=== PATIENT | male | born 1935 | race Caucasian/White ===

== ENCOUNTER 2017-07-10 09:20 | Day surgery (SDC) | payer MEDICARE, OTHER ==
[~2017-07-10 09:20] MED LIST: Cefuroxime 10 MG/ML SYRINGE EYELF SCH; Lidocaine 1% PF 2 ML SDV INJECT SCH; Pilocarpine 4% Ophth Soln 15 ML Bot EYELF SCH
[2017-07-10] MEDS: Polymyxin B/Trimethoprim 10 ML Bottle EYELF SCH ×3 (10:29→12:15)
[2017-07-10] MEDS: Brimonidine 0.2% Ophth Soln 5 ML Bottle EYELF SCH ×3 (10:35→12:15)
[2017-07-10] MEDS: Phenylephrine 2.5% Ophth Soln 2 ML Bot EYELF SCH ×5 (10:40→11:54)
--- NOTE | 2017-07-10 10:56 | PCM.PREANE ---
Preanesthetic Assessment - Anesthesia/Transfusion/Family Hx Anesthesia History: Prior Anesthesia Without Reaction Family History of Anesthesia Reaction: No Transfusion History: No Prior Transfusion(s) Intubation History: Unknown - Review of Systems General: No Symptoms Pulmonary: No Symptoms (quit in 1975) Cardiovascular: No Symptoms (HTN, ) Gastrointestinal: Difficulty Swallowing Neurological: No Symptoms Other: Reports: None - Physical Assessment NPO Status Date: 07/09/17 NPO Status Time: 18:00 Pulse: 52 O2 Sat by Pulse Oximetry: 96 Respiratory Rate: 16 Blood Pressure: 129/61 Temperature: 36.4 C Vital Signs: Last Vital Signs Temp 36.4 C 07/10/17 10:22 Pulse 52 L 07/10/17 10:22 Resp 16 07/10/17 10:22 BP 129/61 07/10/17 10:22 Pulse Ox 96 07/10/17 10:22 Height: 1.7 m Weight: 100.698 kg ASA Class: 3 Mental Status: Alert & Oriented x3 Airway Class: Mallampati = 2 Dentition: Reports: Normal Dentition, Caries Thyro-Mental Finger Breadths: 3 Mouth Opening Finger Breadths: 3 ROM/Head Extension: Limited/Partial Lungs: Clear to Auscultation, Normal Respiratory Effort Cardiovascular: Regular Rate, Regular Rhythm, No Murmurs - Allergies Allergies/Adverse Reactions: Allergies Allergy/AdvReac Type Severity Reaction Status Date / Time No Known Allergies Allergy Verified 07/09/17 14:28 - Anesthesia Plan Pre-Op Medication Ordered: Beta [place] Beta [place]: Atenolol Med Last Dose Date: 07/10/17 Med Last Dose Time: 05:30 - Acknowledgements Anesthesia Type Planned: MAC Pt an Appropriate Candidate for the Planned Anesthesia: Yes Alternatives and Risks of Anesthesia Discussed w Pt/Guardian: Yes Pt/Guardian Understands and Agrees with Anesthesia Plan: Yes PreAnesthesia Questionnaire HEENT History: Reports: Hard of Hearing Other HEENT History: wears glasses, hearing aids Cardiovascular History: Reports: Heart Murmur, Hypertension, Other (See Below) Other Cardiovascular History: mitral valve insufficiency Respiratory History: Reports: Other (See Below) Other Respiratory History: history of pneumonia Gastrointestinal History: Reports: None - Past Surgical History GI Surgical History: Reports: Appendectomy, Colonoscopy, Hernia Repair/Other Musculoskeletal Surgical History: Reports: Hip Replacement - SUBSTANCE USE Smoking Status *Q: Former Smoker Tobacco Use Within Last Twelve Months: Cigarettes Second Hand Smoke Exposure: No Days Per Week of Alcohol Use: 7 Number of Drinks Per Day: 1 Total Drinks Per Week: 7 Recreational Drug Use History: No - HOME MEDS Home Medications: Home Meds Atenolol 25 mg PO DAILY 01/21/14 [History] Losartan [Cozaar] 25 mg PO DAILY 11/26/15 [History] - CURRENT (IN HOUSE) MEDS Current Meds: Current Medications Brimonidine Tartrate (Alphagan 0.2% Ophth Soln) 0 ml EYELF ASDIRECTED RANI Stop: 07/10/17 18:00 Last Admin: 07/10/17 10:35 Dose: 1 drop Cefuroxime Sodium (Zinacef) 0 mg EYELF ASDIRECTED RANI Stop: 07/10/17 18:00 Lidocaine HCl (Xylocaine-Mpf 1%) 10 ml INJECT ASDIRECTED RANI Stop: 07/10/17 18:00 Phenylephrine HCl (Luís-Synephrine 2.5% Ophth Soln) 0 ml EYELF ASDIRECTED RANI Stop: 07/10/17 18:00 Last Admin: 07/10/17 10:40 Dose: 1 drop Pilocarpine HCl (Pilocar 4% Ophth Soln) 0 ml EYELF ASDIRECTED RANI Stop: 07/10/17 18:00 Polymyxin/Trimethoprim Sulfate (Polytrim Ophth Soln) 0 ml EYELF ASDIRECTED RANI Stop: 07/10/17 18:00 Last Admin: 07/10/17 10:29 Dose: 1 drop Tetracaine HCl (Tetracaine 0.5% Steri-Unit Caril) 0 ml EYELF ASDIRECTED RANI Stop: 07/10/17 18:00 Tropicamide (Mydriacyl 1% Ophth Soln) 0 ml EYELF ASDIRECTED RANI Stop: 07/10/17 18:00 Last Admin: 07/10/17 10:45 Dose: 1 drop
[2017-07-10] MEDS: Tetracaine HCl/PF 0.5% 4 ML Bottle EYELF SCH ×2 (11:40→12:04)
--- NOTE | 2017-07-10 12:16 | PCM48HPAN ---
Post Anesthesia Note - EVALUATION WITHIN 48HRS OF ANESTHETIC Vital Signs in Normal Range: Yes Patient Participated in Evaluation: Yes Respiratory Function Stable: Yes Airway Patent: Yes Cardiovascular Function Stable: Yes Hydration Status Stable: Yes Pain Control Satisfactory: Yes Nausea and Vomiting Control Satisfactory: Yes Mental Status Recovered: Yes
[2017-07-10 12:37] VITALS: BP 149/81
== END 2017-07-10 12:31 | disposition home or self-care (01) ==
LOC: JD.SDS 09:20
PROVIDERS: ATTEND Ophthalmology
DX: H25.813 Combined forms of age-related cataract, bilateral (principal); H25.043 Posterior subcapsular polar age-related cataract, bilateral; H25.013 Cortical age-related cataract, bilateral; H40.003 Preglaucoma, unspecified, bilateral; H02.831 Dermatochalasis of right upper eyelid; H02.834 Dermatochalasis of left upper eyelid; I34.0 Nonrheumatic mitral (valve) insufficiency; R01.1 Cardiac murmur, unspecified; I10 Essential (primary) hypertension; Z87.891 Personal history of nicotine dependence; Z79.899 Other long term (current) drug therapy; Z96.653 Presence of artificial knee joint, bilateral; Z96.642 Presence of left artificial hip joint; Z98.890 Other specified postprocedural states
CPT/HCPCS: 66984; V2632; A9270-GY

== ENCOUNTER 2018-01-03 07:38 | Emergency (ER) | payer MEDICARE, OTHER ==
[2018-01-03 07:53] VITALS: BP 122/65
--- NOTE | 2018-01-03 07:57 | EDM.PDOC ---
ED HPI GENERAL MEDICAL PROBLEM - General Chief Complaint: Abdominal Pain Stated Complaint: LT SIDE ABD PAIN Time Seen by Provider: 01/03/18 07:50 Source of Information: Reports: Patient History Limitations: Reports: No Limitations - History of Present Illness INITIAL COMMENTS - FREE TEXT/NARRATIVE: 82-year-old male presents the ED with gradually worsening left lower quadrant abdominal pain over the last 3 days. He states he is pain-free if he doesn't move. It is worse with coughing walking or sitting. He can localize the pain very well to the distribution of his left lower quadrant over the sigmoid colon. He has no history of diverticulitis in the past. No recognized fever or chills. Appetite is been rather poor with only 1 meal taken in the last 2 days. States bowel function has been poor as well since she's not eating. No blood per rectum. He is passing flatus now but for. Of time he didn't seem to be able to pass flatus either and was concerned he may be developing another bowel obstruction. Patient's previous abdominal surgeries include an appendectomy cholecystectomy and an umbilical hernia raphe repair. He does not believe mesh grafting was used. Onset: Gradual Onset Date: 12/31/17 Duration: Day(s): (Gradually worsening left lower quadrant abdominal pain over the last 3 days.) Location: Reports: Abdomen (Left lower quadrant abdominal pain.) Quality: Reports: Ache Severity: Moderate Improves with: Reports: Rest Worsens with: Reports: Other (Coughing sneezing or laughing makes it worse.), Movement Context: Denies: Activity, Exercise, Lifting, Sick Contact, Trauma, Other Associated Symptoms: Reports: Loss of Appetite. 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: Other (see below) (None.) Left Lower Abdominal Pain Score (Numeric/FACES): 3 - Related Data Allergies Allergy/AdvReac Type Severity Reaction Status Date / Time No Known Allergies Allergy Verified 01/03/18 07:50 Home Meds: Home Meds Atenolol 25 mg PO DAILY 01/21/14 [History] Losartan [Cozaar] 25 mg PO DAILY 11/26/15 [History] Levofloxacin [Levaquin] 500 mg PO DAILY #9 tab 01/03/18 [Rx] metroNIDAZOLE [Flagyl] 500 mg PO Q8H #21 tab 01/03/18 [Rx] Past Medical History HEENT History: Reports: Hard of Hearing Other HEENT History: wears glasses, hearing aids Cardiovascular History: Reports: Heart Murmur, Hypertension, Other (See Below) Other Cardiovascular History: mitral valve insufficiency Respiratory History: Reports: Other (See Below) Other Respiratory History: history of pneumonia Gastrointestinal History: Reports: None - Past Surgical History GI Surgical History: Reports: Appendectomy, Colonoscopy, Hernia Repair/Other Musculoskeletal Surgical History: Reports: Hip Replacement Social & Family History - Family History HEENT: Reports: None Cardiac: Reports: None Respiratory: Reports: None GI: Reports: None : Reports: None Musculoskeletal: Reports: None Neurological: Reports: None Psychiatric: Reports: None Endocrine/Metabolic: Reports: None Hematologic: Reports: None Immunologic: Reports: None Oncologic: Reports: None - Living Situation & Occupation Living situation: Reports: Occupation: Retired ED ROS GENERAL - Review of Systems Review Of Systems: See Below Constitutional: Reports: Malaise, Weakness, Fatigue, Decreased Appetite, Weight Loss. Denies: Fever, Chills HEENT: Reports: Glasses Respiratory: Reports: Shortness of Breath. Denies: Wheezing, Pleuritic Chest Pain, Cough, Sputum, Hemoptysis Cardiovascular: Reports: Blood Pressure Problem (Controlled with medications), Dyspnea on Exertion. Denies: Claudication, Edema (Chronically), Lightheadedness , Orthopnea Endocrine: Reports: Fatigue GI/Abdominal: Reports: Abdominal Pain (See history of present illness), Decreased Appetite, Flatus (Is passing flatus last day or so. Does not feel bloated). Denies: Diarrhea, Nausea, Stool Incontinence, Vomiting : Reports: Frequency, Other (Nocturia 3.) Musculoskeletal: Reports: Back Pain, Joint Pain (Both knees have been replaced left hip is been replaced) Skin: Reports: No Symptoms Neurological: Reports: No Symptoms Psychiatric: Reports: No Symptoms Hematologic/Lymphatic: Reports: No Symptoms Immunologic: Reports: No Symptoms ED EXAM, GI/ABD - Physical Exam Exam: See Below Exam Limited By: No Limitations General Appearance: Alert, WD/WN, No Apparent Distress, Other Eyes: Bilateral: Normal Appearance (No jaundice.) Neck: Normal Inspection, Supple, Non-Tender. No: Lymphadenopathy (L), Lymphadenopathy (R) Respiratory/Chest: No Respiratory Distress, Lungs Clear, Normal Breath Sounds, No Accessory Muscle Use Cardiovascular: Normal Peripheral Pulses, Regular Rate, Rhythm, No Edema, No Murmur GI/Abdominal Exam: Guarding, Rebound (Patient is very tender to palpation left lower quadrant of the abdomen event like percussion. He is guarding with rebound tenderness left lower quadrant of the distribution of the sigmoid colon. ), Tender, Abnormal Bowel Sounds (Bowel sounds are mildly decreased compared to the norm.). No: Distended Back Exam: Normal Inspection, Full Range of Motion. No: CVA Tenderness (L), CVA Tenderness (R) Extremities: Normal Inspection, Normal Range of Motion, Non-Tender, No Pedal Edema Neurological: Alert, Oriented, CN II-XII Intact, Normal Cognition, Normal Gait Psychiatric: Normal Affect, Normal Mood Skin Exam: Warm, Dry, Intact, Normal Color, No Rash Course - Vital Signs Last Recorded V/S: Last Vital Signs Temp 36.0 C 01/03/18 07:50 Pulse 62 01/03/18 07:50 Resp 16 01/03/18 07:50 BP 122/65 01/03/18 07:50 Pulse Ox 95 01/03/18 07:50 - Orders/Labs/Meds Orders: Active Orders 24 hr Category Date Time Status EKG Documentation Completion [RC] STAT Care 01/03/18 07:58 Active CULTURE BLOOD [BC] Stat Lab 01/03/18 08:27 Received CULTURE BLOOD [BC] Stat Lab 01/03/18 08:36 Received Dextrose 5%-0.9% NaCl [Dextrose 5%-Normal Saline] 1,000 Med 01/03/18 08:00 Active ml IV ASDIRECTED Sodium Chloride 0.9% [Normal Saline] 1,000 ml Med 01/03/18 09:00 Active IV ASDIRECTED Sodium Chloride 0.9% [Normal Saline] 1,000 ml Med 01/03/18 10:00 Active IV ASDIRECTED Sodium Chloride 0.9% [Saline Flush] Med 01/03/18 09:30 Active 10 ml FLUSH ONETIME PRN Blood Culture x2 Reflex Set [OM.PC] Stat Oth 01/03/18 07:59 Ordered Medication Orders Dextrose/Sodium Chloride (Dextrose 5%-Normal Saline) 1,000 mls @ 500 mls/hr IV ASDIRECTED RANI Last Admin: 01/03/18 08:07 Dose: 500 mls/hr Sodium Chloride (Normal Saline) 1,000 mls @ 500 mls/hr IV ASDIRECTED RANI Last Admin: 01/03/18 09:08 Dose: 500 mls/hr Sodium Chloride (Normal Saline) 1,000 mls @ 150 mls/hr IV ASDIRECTED RANI Sodium Chloride (Saline Flush) 10 ml FLUSH ONETIME PRN PRN Reason: IV FLUSH Last Admin: 01/03/18 09:49 Dose: 10 ml Labs: Laboratory Tests 01/03/18 01/03/18 01/03/18 Range/Units 08:05 08:05 08:05 WBC 8.92 (4.23-9.07) K/mm3 RBC 4.87 (4.63-6.08) M/mm3 Hgb 15.9 (13.7-17.5) gm/L Hct 45.7 (40.1-51.0) % MCV 93.8 H (79.0-92.2) fl MCH 32.6 H (25.7-32.2) pg MCHC 34.8 (32.2-35.5) g/dl RDW Std Deviation 44.5 H (35.1-43.9) fL Plt Count 133 L (163-337) K/mm3 MPV 11.1 (9.4-12.3) fl Neutrophils % (Manual) 68 H (40-60) % Band Neutrophils % 0 (0-10) % Lymphocytes % (Manual) 29 (20-40) % Atypical Lymphs % 0 % Monocytes % (Manual) 2 (2-10) % Eosinophils % (Manual) 1 (0.8-7.0) % Basophils % (Manual) 0 L (0.2-1.2) Platelet Estimate Adequate RBC Morph Comment Normal ESR 13 (0-15) mm/hr PT (9.5-12.1) SECONDS INR APTT (24-31) SECONDS Sodium 136 (136-145) mEq/L Potassium 4.2 (3.5-5.1) mEq/L Chloride 101 (98-107) mEq/L Carbon Dioxide 26 (21-32) mEq/L Anion Gap 13.2 (5-15) BUN 19 H (7-18) mg/dL Creatinine 1.3 (0.7-1.3) mg/dL Est Cr Clr Drug Dosing 41.65 mL/min Estimated GFR (MDRD) 53 (>60) mL/min BUN/Creatinine Ratio 14.6 (14-18) Glucose 165 H (83-115) mg/dL Calcium 9.1 (8.5-10.1) mg/dL Magnesium 1.8 (1.8-2.4) mg/dl Total Bilirubin 1.7 H (0.2-1.0) mg/dL AST 16 (15-37) U/L ALT 35 (16-63) U/L Alkaline Phosphatase 58 (46-116) U/L C-Reactive Protein 13.9 H* (<1.0) mg/dL NT-Pro-B Natriuret Pep (0-450) pg/mL Total Protein 7.1 (6.4-8.2) g/dl Albumin 3.7 (3.4-5.0) g/dl Globulin 3.4 gm/dL Albumin/Globulin Ratio 1.1 (1-2) Lipase 85 (73-393) U/L Urine Color (Yellow) Urine Appearance (Clear) Urine pH (5.0-8.0) Ur Specific Shelly (1.005-1.030) Urine Protein (Negative) Urine Glucose (UA) (Negative) Urine Ketones (Negative) Urine Occult Blood (Negative) Urine Nitrite (Negative) Urine Bilirubin (Negative) Urine Urobilinogen (0.2-1.0) Ur Leukocyte Esterase (Negative) Urine RBC (0-5) /hpf Urine WBC (0-5) /hpf Ur Epithelial Cells (0-5) /hpf Urine Bacteria (FEW) /hpf Urine Mucus (FEW) /hpf 01/03/18 01/03/18 01/03/18 Range/Units 08:05 08:05 11:35 WBC (4.23-9.07) K/mm3 RBC (4.63-6.08) M/mm3 Hgb (13.7-17.5) gm/L Hct (40.1-51.0) % MCV (79.0-92.2) fl MCH (25.7-32.2) pg MCHC (32.2-35.5) g/dl RDW Std Deviation (35.1-43.9) fL Plt Count (163-337) K/mm3 MPV (9.4-12.3) fl Neutrophils % (Manual) (40-60) % Band Neutrophils % (0-10) % Lymphocytes % (Manual) (20-40) % Atypical Lymphs % % Monocytes % (Manual) (2-10) % Eosinophils % (Manual) (0.8-7.0) % Basophils % (Manual) (0.2-1.2) Platelet Estimate RBC Morph Comment ESR (0-15) mm/hr PT 11.2 (9.5-12.1) SECONDS INR 1.03 APTT 33 H (24-31) SECONDS Sodium (136-145) mEq/L Potassium (3.5-5.1) mEq/L Chloride (98-107) mEq/L Carbon Dioxide (21-32) mEq/L Anion Gap (5-15) BUN (7-18) mg/dL Creatinine (0.7-1.3) mg/dL Est Cr Clr Drug Dosing mL/min Estimated GFR (MDRD) (>60) mL/min BUN/Creatinine Ratio (14-18) Glucose (83-115) mg/dL Calcium (8.5-10.1) mg/dL Magnesium (1.8-2.4) mg/dl Total Bilirubin (0.2-1.0) mg/dL AST (15-37) U/L ALT (16-63) U/L Alkaline Phosphatase (46-116) U/L C-Reactive Protein (<1.0) mg/dL NT-Pro-B Natriuret Pep 362 (0-450) pg/mL Total Protein (6.4-8.2) g/dl Albumin (3.4-5.0) g/dl Globulin gm/dL Albumin/Globulin Ratio (1-2) Lipase (73-393) U/L Urine Color Yellow (Yellow) Urine Appearance Clear (Clear) Urine pH 6.0 (5.0-8.0) Ur Specific Shelly 1.015 (1.005-1.030) Urine Protein Negative (Negative) Urine Glucose (UA) Negative (Negative) Urine Ketones Negative (Negative) Urine Occult Blood Trace-intact H (Negative) Urine Nitrite Negative (Negative) Urine Bilirubin Negative (Negative) Urine Urobilinogen 0.2 (0.2-1.0) Ur Leukocyte Esterase Negative (Negative) Urine RBC Not seen (0-5) /hpf Urine WBC Not seen (0-5) /hpf Ur Epithelial Cells Not seen (0-5) /hpf Urine Bacteria Not seen (FEW) /hpf Urine Mucus Not seen (FEW) /hpf Meds: Medications Generic Name Dose Route Start Last Admin Trade Name Ruben PRN Reason Stop Dose Admin Dextrose/Sodium Chloride 1,000 mls @ 500 mls/hr 01/03/18 08:00 01/03/18 08:07 Dextrose 5%-Normal Saline IV 500 mls/hr ASDIRECTED RANI Administration Sodium Chloride 1,000 mls @ 500 mls/hr 01/03/18 09:00 01/03/18 09:08 Normal Saline IV 500 mls/hr ASDIRECTED RANI Administration Sodium Chloride 1,000 mls @ 150 mls/hr 01/03/18 10:00 Normal Saline IV ASDIRECTED RANI Sodium Chloride 10 ml 01/03/18 09:30 01/03/18 09:49 Saline Flush FLUSH 10 ml ONETIME PRN Administration IV FLUSH Discontinued Medications Generic Name Dose Route Start Last Admin Trade Name Ruben PRN Reason Stop Dose Admin Diatrizoate Meglum/Diatrizoate Sod 90 ml 01/03/18 09:30 01/03/18 09:49 Gastrografin 37% PO 01/03/18 09:31 90 ml ONETIME ONE Administration Hydromorphone HCl 0.5 mg 01/03/18 07:58 01/03/18 08:09 Dilaudid IVPUSH 01/03/18 07:59 Not Given ONETIME ONE Levofloxacin/Dextrose 750 mg/ 150 mls @ 100 mls/hr 01/03/18 08:02 01/03/18 09 :09 Premix IV 01/03/18 09:31 Not Given ONETIME ONE Metronidazole 500 mg/ Premix 100 mls @ 100 mls/hr 01/03/18 08:43 01/03/18 09: 09 IV 01/03/18 09:42 100 mls/hr ONETIME ONE Administration Levofloxacin/Dextrose 750 mg/ 150 mls @ 100 mls/hr 01/03/18 10:41 01/03/18 11 :21 Premix IV 01/03/18 12:10 100 mls/hr ONETIME ONE Administration Iopamidol 125 ml 01/03/18 09:30 01/03/18 09:49 Isovue-300 (61%) IVPUSH 01/03/18 09:31 125 ml ONETIME ONE Administration Metoclopramide HCl 10 mg 01/03/18 07:58 01/03/18 08:07 Reglan IVPUSH 01/03/18 07:59 10 mg ONETIME ONE Administration - Radiology Interpretation Free Text/Narrative:: 82-year-old male presents the ED with gradually worsening left lower quadrant abdominal pain over the last 3 days. Associated decrease in appetite. No associated fever or chills that he was aware of. Hurts to move cough sneeze or laugh. Better at rest. Examination reveals well localized tenderness to the left lower quadrant of the abdomen over the distribution of the sigmoid colon. Highly suspect diverticulitis. Plan routine lab work including blood cultures 2. He will then be started on Levaquin 750 mg IV. Offered Dilaudid 0.5 mg and Reglan 7.5 mg IV for pain and nausea relief. CT the abdomen will be performed with oral and IV contrast providing his kidney function is normal. - Re-Assessments/Exams Free Text/Narrative Re-Assessment/Exam: 01/03/18 09:29 Labs are back. White count is normal at 8.92. Differential 60% neutrophils no bands. Hemoglobin is 15.9 with hematocrit of 45.7. MCV is mildly elevated at 93.8 white count is still low normal at 133,000. PT is 11.2 with an INR of 1.03. PTT is slightly elevated at 33. Sodium 136 with a potassium of 4.2. Chloride 11 with a bicarbonate 26. And a gap is normal at 13.2. B1 is 19 with a creatinine of 1.3. GFR is 53. Glucose mildly elevated 165. Calcium normal at 9.1. Magnesium normal at 1.8. Total bilirubin is mildly elevated 1.7. 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 C-reactive protein is markedly elevated at 13.9 BNP is mildly elevated 362. Lipase normal at 85. 01/03/18 10:42 CT of the abdomen and pelvis completed. The liver appears to be within normal limits although it has two cystic lesions in the left lobe of the liver near the falx. Pancreas is mildly atrophic both kidneys arm moderately atrophic but the ureters are patent and normal. Several small cysts are appreciated within the renal cortically cord, bilaterally. Bladder is mildly distended. Adrenal glands appear to be within normal limits. Spleen is normal in size. There is an area of diverticulitis at the junction of the descending colon the sigmoid colon rounding inflammatory infiltrate. There is no abscess at this time. There are numerous diverticula throughout the sigmoid colon. Lungs are compatible with moderately severe diverticulitis. Did identify fairly extensive atherosclerosis in the distal aspect of the aorta and at the bifurcation particularly. Plan will now proceed with Levaquin 750 mg IV. Once this has been completed the patient feels he can manage at home. He does not wish to come in to hospital. 01/03/18 12:37 Patient has approximately 25 minutes of his Levaquin to be infused and then he will be discharged to home as he does not want to stay in the hospital. Prescription will be written for Levaquin 500 mg once daily for another 9 days starting tomorrow morning. Also Flagyl 500 mg 3 times daily which she needs to further doses today and then to complete 1 week of therapy. He is to follow-up with his personal care physician and 7-10 days time Departure - Departure Time of Disposition: 13:00 Disposition: Home, Self-Care 01 Condition: Fair Clinical Impression: Diverticulitis large intestine Qualifiers: Diverticulitis bleeding: without bleeding Diverticulitis complication: without perforation or abscess Qualified Code(s): K57.32 - Diverticulitis of large intestine without perforation or abscess without bleeding - Discharge Information Prescriptions: Levofloxacin [Levaquin] 500 mg PO DAILY #9 tab metroNIDAZOLE [Flagyl] 500 mg PO Q8H #21 tab Instructions: Diverticulitis, [id number] Referrals: Kannan High MD [Primary Care Provider] - Forms: ED Department Discharge Additional Instructions: Evaluation the emergency room today in regards to gradually worsening left lower quadrant abdominal pain over the last 3 days. Examination we were able to localize the pain very well to the lower quadrant of the abdomen the distribution of the sigmoid colon. Suspicion was for development of diverticulitis an infection of the colon wall. This was proven on CT scan of the abdomen there is a diverticular inflammation at the juncture of the descending colon and sigmoid colon left lower quadrant of the abdomen. There is no perforation or abscess at this time. However there is a significant amount of inflammation in this area indicating moderate diverticulitis. Treatment is antibiotic therapy Levaquin 500 mg once daily for another 9 days with the first tablet due tomorrow morning. Flagy is 500 mg 3 times daily for the next 7 days to also clear up infection. He needed tablet at partially 4:00 this afternoon and again before bed tonight. This dose was given through the IV this morning. Expect gradual improvement with complete resolution of the pain over the next 3 days. If pain worsens in the next 24-36 hours you are to return to the hospital. - My Orders Last 24 Hours: My Active Orders 01/03/18 07:58 EKG Documentation Completion [RC] STAT 01/03/18 07:59 Blood Culture x2 Reflex Set [OM.PC] Stat 01/03/18 08:00 Dextrose 5%-0.9% NaCl [Dextrose 5%-Normal Saline] 1,000 ml IV ASDIRECTED 01/03/18 08:27 CULTURE BLOOD [BC] Stat 01/03/18 08:36 CULTURE BLOOD [BC] Stat 01/03/18 09:00 Sodium Chloride 0.9% [Normal Saline] 1,000 ml IV ASDIRECTED 01/03/18 09:30 Sodium Chloride 0.9% [Saline Flush] 10 ml FLUSH ONETIME PRN 01/03/18 10:00 Sodium Chloride 0.9% [Normal Saline] 1,000 ml IV ASDIRECTED - Assessment/Plan Last 24 Hours: My Active Orders 01/03/18 07:58 EKG Documentation Completion [RC] STAT 01/03/18 07:59 Blood Culture x2 Reflex Set [OM.PC] Stat 01/03/18 08:00 Dextrose 5%-0.9% NaCl [Dextrose 5%-Normal Saline] 1,000 ml IV ASDIRECTED 01/03/18 08:27 CULTURE BLOOD [BC] Stat 01/03/18 08:36 CULTURE BLOOD [BC] Stat 01/03/18 09:00 Sodium Chloride 0.9% [Normal Saline] 1,000 ml IV ASDIRECTED 01/03/18 09:30 Sodium Chloride 0.9% [Saline Flush] 10 ml FLUSH ONETIME PRN 01/03/18 10:00 Sodium Chloride 0.9% [Normal Saline] 1,000 ml IV ASDIRECTED
[2018-01-03] MEDS ORDERED: HYDROmorphone 0.5 MG/0.5 ML SYRINGE IVPUSH ONE (07:58)
[2018-01-03] MEDS ORDERED: Metoclopramide 10 MG/2 ML SDV IVPUSH ONE (07:58)
[2018-01-03] MEDS ORDERED: Dextrose 5%-0.9% NaCl 1,000 ML IV SCH (08:00)
[2018-01-03] MEDS ORDERED: Levofloxacin/Dextrose 5%-Water 750 MG in Premix Bag 1 BAG IV ONE ×2 (08:02→10:41)
[2018-01-03] MEDS ORDERED: metroNIDAZOLE/Normal Saline 500 MG in Premix Bag 1 BAG IV ONE (08:43)
[2018-01-03] MEDS ORDERED: Sodium Chloride 0.9% 1,000 ML IV SCH ×2 (09:00→10:00)
[2018-01-03] MEDS ORDERED: Iopamidol 612 MG/ML 150 ML Bottle IVPUSH ONE (09:30)
[2018-01-03] MEDS ORDERED: Diatrizoate Meglumine/Diatrizoate Sodium 37% 120 ML Bottle PO ONE (09:30)
[2018-01-03] MEDS ORDERED: Sodium Chloride 0.9% 10 ML Syringe FLUSH PRN (09:30)
--- NOTE | 2018-01-03 10:23 | CT ---
CT abdomen and pelvis Technique: Multiple axial sections were obtained from above the dome of the diaphragm inferiorly through the pubic symphysis. Intravenous and oral contrast was utilized. Comparison: No prior CT abdomen or pelvis exam. Findings: Bowel wall thickening and inflammatory change is seen near the junction of the descending and sigmoid colon with diverticuli. Findings are compatible with moderately severe diverticulitis. Other diverticuli are seen within the descending and sigmoid colon. Liver shows mild fatty infiltration. 2 low-density lesions are seen anteriorly which are felt compatible with cysts measuring 1.9 cm and 5.6 mm. Visualized lung bases shows nothing acute. Spleen appears within normal limits. Adrenal glands show no nodule. Cyst noted within the right kidney measuring 3.3 cm. Cyst noted within the lower left kidney measuring 1.9 cm. Several smaller cysts are seen within the left kidney. Kidneys are otherwise unremarkable. Pancreas appears normal. Aorta and iliac vessels shows atherosclerotic change without aneurysm. No retroperitoneal adenopathy is seen. No mesenteric abnormalities are seen. Appendix is not visualized with certainty. Bone window settings were reviewed which show scattered degenerative changes throughout the spine. Bladder is generous in size. Impression: 1. Findings compatible with moderately severe diverticulitis at the junction of the descending and sigmoid colon. No diverticular abscess is seen at this time. 2. Generous size of the bladder and difficult to exclude an element of urinary retention. 3. Other incidental findings as noted above. Diagnostic code #3
== END 2018-01-03 13:13 | disposition home or self-care (01) ==
LOC: JD.ED 07:38
DX: K57.32 Diverticulitis of large intestine without perforation or abscess without bleeding (principal)
CPT/HCPCS: 36415; 74177; 80053; 81001; 83690; 83735; 83880; 85007; 85027; 85610; 85652; 85730; 86140; 87040; 93005; 96365; 96366; 96368; 96375; 99285; J1956; J2765; J7040; J7042; J7050; Q9963; Q9967

== ENCOUNTER 2018-03-25 11:19 | Emergency (ER) | payer MEDICARE, OTHER ==
[2018-03-25 11:38] VITALS: BP 132/71
--- NOTE | 2018-03-25 12:31 | EDM.PDOC ---
ED HPI GENERAL MEDICAL PROBLEM - General Chief Complaint: Lower Extremity Injury/Pain Stated Complaint: RT FOOT SWOLLEN Time Seen by Provider: 03/25/18 12:00 Source of Information: Reports: Patient, Other (recent walk-in visit records) History Limitations: Reports: No Limitations - History of Present Illness INITIAL COMMENTS - FREE TEXT/NARRATIVE: 82-year-old male presents for evaluation treatment of right ankle pain and swelling. Reports that the symptoms woke him up March 20 around 2 AM. He was seen in the [facility] on March 21. He had labs including a CBC and uric acid done as well as an x-ray. X-ray did not show any acute fractures. CBC the showed a red blood cell count of 5.9, hemoglobin 15.2 and platelets of 146. Uric acid level was within normal limits at 5.9. He was prescribed naproxen instructed to follow-up with his PCP if symptoms did not improve. Patient reports he continues to have swelling to the ankle. Reports the pain has improved however he has difficulty with range of motion due to the swelling. No pain or swelling in his calfs. Denies any fevers, chills, nausea or vomiting. Patient states he's never had anything like this before. No history of gout. Reviewed the patient's records show that he has been seen in the ED on several occasions for left foot and ankle pain. He does have a previous a diagnosis of gout on October 2014 in the ED. Right Feet Pain Score (Numeric/FACES): 5 - Related Data Allergies Allergy/AdvReac Type Severity Reaction Status Date / Time No Known Allergies Allergy Verified 01/03/18 07:50 Home Meds: Home Meds Atenolol 25 mg PO DAILY 01/21/14 [History] Losartan [Cozaar] 25 mg PO DAILY 11/26/15 [History] predniSONE [Prednisone] 20 mg PO BID #10 tablet 03/25/18 [Rx] Past Medical History HEENT History: Reports: Hard of Hearing Other HEENT History: wears glasses, hearing aids Cardiovascular History: Reports: Heart Murmur, Hypertension, Other (See Below) Other Cardiovascular History: mitral valve insufficiency Respiratory History: Reports: Other (See Below) Other Respiratory History: history of pneumonia Gastrointestinal History: Reports: None - Past Surgical History GI Surgical History: Reports: Appendectomy, Colonoscopy, Hernia Repair/Other Musculoskeletal Surgical History: Reports: Hip Replacement Social & Family History - Family History HEENT: Reports: None Cardiac: Reports: None Respiratory: Reports: None GI: Reports: None : Reports: None Musculoskeletal: Reports: None Neurological: Reports: None Psychiatric: Reports: None Endocrine/Metabolic: Reports: None Hematologic: Reports: None Immunologic: Reports: None Oncologic: Reports: None - Tobacco Use Smoking Status *Q: Never Smoker - Caffeine Use Caffeine Use: Reports: Coffee - Alcohol Use Days Per Week of Alcohol Use: 7 Number of Drinks Per Day: 2 Total Drinks Per Week: 14 - Recreational Drug Use Recreational Drug Use: No - Living Situation & Occupation Living situation: Reports: Occupation: Retired Review of Systems - Review of Systems Review Of Systems: See Below Constitutional: Denies: Chills, Fever GI/Abdominal: Denies: Nausea, Vomiting Musculoskeletal: Reports: Joint Pain (right ankle, now improving), Joint Swelling (right ankle) Skin: Reports: Erythema (right ankle). Denies: Wound Neurological: Denies: Numbness, Tingling ED EXAM, GENERAL - Physical Exam Exam: See Below Exam Limited By: No Limitations General Appearance: Alert, WD/WN, No Apparent Distress Respiratory/Chest: No Respiratory Distress Cardiovascular: Normal Peripheral Pulses, Regular Rate, Rhythm Peripheral Pulses: 2+: Posterior Tibial (L), Posterior Tibial (R), Dorsalis Pedis (L), Dorsalis Pedis (R) Extremities: Normal Capillary Refill, Limited Range of Motion (due to swelling and discomfort to the right ankle, discomfort with right dorsiflexion and plantarflexion), Other (2+ pitting edema to the right ankle). No: June's Sign Neurological: Alert, Oriented, Normal Cognition Psychiatric: Normal Affect, Normal Mood Skin Exam: Warm, Dry, Normal Color, Erythema (right ankle), Increased Warmth ( right ankle) Course - Vital Signs Last Recorded V/S: Last Vital Signs Temp 98.1 F 03/25/18 11:36 Pulse 57 L 03/25/18 11:36 Resp 18 03/25/18 11:36 BP 132/71 03/25/18 11:36 Pulse Ox 95 03/25/18 11:36 - Re-Assessments/Exams Free Text/Narrative Re-Assessment/Exam: 03/25/18 12:45 Recieved recent labs and imainge from [place]. This appears to be gout. Will treat with prednisone and folow-up if not better. Discharge instructions as documented. Departure - Departure Time of Disposition: 12:46 Disposition: Home, Self-Care 01 Condition: Fair Clinical Impression: Gout, Joint swelling - Discharge Information *PRESCRIPTION DRUG MONITORING PROGRAM REVIEWED*: No *COPY OF PRESCRIPTION DRUG MONITORING REPORT IN PATIENT BROOKE: No Prescriptions: predniSONE [Prednisone] 20 mg PO BID #10 tablet Referrals: Kannan High MD [Primary Care Provider] - Forms: ED Department Discharge Additional Instructions: Take the prednisone as prescribed. 1 tab twice a day for 5 days. May continue taking your pain medication you have at home as needed. Continue to ice and elevate the ankle. Follow-up with your primary care provider if not much better in one week. Please return to ER if your symptoms change or worsen.
== END 2018-03-25 12:57 | disposition home or self-care (01) ==
LOC: JD.ED 11:19
DX: M10.9 Gout, unspecified (principal); I10 Essential (primary) hypertension; Z79.899 Other long term (current) drug therapy
CPT/HCPCS: 99283